=== PATIENT | female | born 1980 | race Caucasian/White ===

== ENCOUNTER 2016-06-22 14:28 | Emergency (ER) | payer OTHER ==
[~2016-06-22] VITALS: Ht 177.8 cm; Wt 80.0 kg
[2016-06-22 14:29] VITALS: BP 137/101; PULSE 103; RESP 24; TEMP 97.9; O2SAT 93
[2016-06-22] MEDS ORDERED: SODIUM CHLOR 0.9% 1000 ML INJ 1,000 ML IV SCH (15:01)
--- NOTE | 2016-06-22 15:02 | PD ---
HPI Chief Complaint: Abdominal Pain Time Seen by Provider: 15:02 Travel History International Travel<30 days: No Contact w/Intl Traveler<30days: No Traveled to known affect area: No History of Present Illness HPI 35-year-old female presents to the emergency department for evaluation of epigastric burning pain and nausea. The patient states that she has had intermittent epigastric abdominal pain for the past 2 months and has been following up with her outpatient physician. States that she had lab work which showed she had an elevated lipase, had an abdominal ultrasound which showed she had a dilated common bile duct and an endoscopy that showed she had irritation and inflammation of the stomach lining without evidence of ulcers. States that she is here today because the abdominal pain has been much worse for the past 3 hours that has over the past 2 months. States she has been taking ibuprofen and Tylenol to try to help with her pain, admits taking ibuprofen daily. States that she does have intermittent nausea and nonbloody nonbilious emesis, had 1-2 episodes of vomiting today. States she is also having diarrhea, denies constipation or bloody stool. Denies fever, chills, chest pain, shortness of breath, cough or cold symptoms, burning with urination, painful urination. Denies , last visit. One week ago. The patient admits to drinking at least one alcoholic beverage 5-6 days out of the week, admits that she drank heavily last night approximately 6 shots and 3 alcoholic beverages. Denies any prior abdominal surgeries. No other complaints. PFSH Past Medical History Medical History: Denies Significant Hx Tetanus Vaccination: < 5 Years ?: Not Past Surgical History Surgical History: No Previous Surgery Social History Alcohol Use: Yes Tobacco Use: Yes Substance Use: No Allergies-Medications (Allergen,Severity, Reaction): Coded Allergies: No Known Allergies (Unverified , 06/22/16) Reported Meds & Prescriptions Reported Meds & Active Scripts Active No Active Prescriptions or Reported Medications Review of Systems Except as stated in HPI: all other systems reviewed are Neg Physical Exam Narrative GENERAL: Well-nourished and well-developed pleasant patient in no acute distress who is nontoxic appearing. SKIN: Warm and dry without any obvious rashes or lesions. HEAD: Normocephalic and atraumatic. EYES: No injection, drainage, or hyphema noted. PERRLA. EOMI. ENT: No nasal drainage noted. Oropharynx is clear and the TMs are normal with good landmarks. NECK: Supple and the trachea is midline. CARDIOVASCULAR: Regular rate and rhythm. RESPIRATORY: Breath sounds are equal bilaterally with no accessory muscle use, wheezing, rhonchi, or crackles. GASTROINTESTINAL: Epigastric tenderness to palpation. Abdomen is soft and nondistended. Negative McBurney's point. Negative Cruz's sign. MUSCULOSKELETAL: No obvious deformities, swelling, cyanosis, or ecchymosis is present throughout the upper and lower extremities. Patient has full range of motion without any signs of neurovascular compromise. BACK: Negative CVA tenderness. NEUROLOGICAL: Awake, alert, and oriented. Normal speech and gait. Cranial nerves are grossly intact. Data Data Last Documented VS Vital Signs Date Time Temp Pulse Resp B/P Pulse Ox O2 Delivery O2 Flow Rate FiO2 06/22/16 15:12 99 06/22/16 14:29 97.9 103 24 137/101 Room Air Orders Complete Blood Count With Diff (06/22/16 15:01) Comprehensive Metabolic Panel (06/22/16 15:01) Lipase (06/22/16 15:01) Urinalysis - C+S If Indicated (06/22/16 15:01) Iv Access Insert/Monitor (06/22/16 15:01) Ecg Monitoring (06/22/16 15:01) Oximetry (06/22/16 15:01) Morphine Inj (Morphine Inj) (06/22/16 15:15) Ondansetron Inj (Zofran Inj) (06/22/16 15:15) Sodium Chlor 0.9% 1000 Ml Inj (Ns 1000 M (06/22/16 15:01) Sodium Chloride 0.9% Flush (Ns Flush) (06/22/16 15:15) Famotidine Inj (Pepcid Inj) (06/22/16 15:15) Ed Urine Pregnancytest Poc (06/22/16 15:01) Diphenhydramine Inj (Benadryl Inj) (06/22/16 15:30) Acetaminophen (Tylenol) (06/22/16 16:00) Al-Mag Hy-Si 40-40-4 Mg/Ml Liq (Mag-Al P (06/22/16 16:30) Lidocaine 2% Viscous (Xylocaine 2% Visco (06/22/16 16:30) Labs Laboratory Tests Test 06/22/16 15:00 White Blood Count 8.7 TH/MM3 Red Blood Count 4.66 MIL/MM3 Hemoglobin 14.3 GM/DL Hematocrit 41.5 % Mean Corpuscular Volume 88.9 FL Mean Corpuscular Hemoglobin 30.6 PG Mean Corpuscular Hemoglobin 34.4 % Concent Red Cell Distribution Width 14.7 % Platelet Count 321 TH/MM3 Mean Platelet Volume 7.7 FL Neutrophils (%) (Auto) 64.9 % Lymphocytes (%) (Auto) 23.3 % Monocytes (%) (Auto) 8.5 % Eosinophils (%) (Auto) 2.3 % Basophils (%) (Auto) 1.0 % Neutrophils # (Auto) 5.6 TH/MM3 Lymphocytes # (Auto) 2.0 TH/MM3 Monocytes # (Auto) 0.7 TH/MM3 Eosinophils # (Auto) 0.2 TH/MM3 Basophils # (Auto) 0.1 TH/MM3 CBC Comment DIFF FINAL Differential Comment Urine Color YELLOW Urine Turbidity CLEAR Urine pH 8.0 Urine Specific Orchard 1.018 Urine Protein TRACE mg/dL Urine Glucose (UA) NEG mg/dL Urine Ketones NEG mg/dL Urine Occult Blood NEG Urine Nitrite NEG Urine Bilirubin NEG Urine Urobilinogen LESS THAN 2.0 MG/DL Urine Leukocyte Esterase NEG Urine RBC 1 /hpf Urine WBC 1 /hpf Urine Squamous Epithelial 6 /hpf Cells Urine Mucus FEW /lpf Microscopic Urinalysis Comment CULT NOT INDICATED Sodium Level 141 MEQ/L Potassium Level 4.1 MEQ/L Chloride Level 108 MEQ/L Carbon Dioxide Level 26.0 MEQ/L Anion Gap 7 MEQ/L Blood Urea Nitrogen 9 MG/DL Creatinine 0.79 MG/DL Estimat Glomerular Filtration 82 ML/MIN Rate Random Glucose 99 MG/DL Calcium Level 8.9 MG/DL Total Bilirubin 0.5 MG/DL Aspartate Amino Transf 25 U/L (AST/SGOT) Alanine Aminotransferase 32 U/L (ALT/SGPT) Alkaline Phosphatase 58 U/L Total Protein 8.0 GM/DL Albumin 4.1 GM/DL Lipase 172 U/L [facility] Medical Decision Making Medical Screen Exam Complete: Yes Emergency Medical Condition: Yes Differential Diagnosis Gastritis versus alcoholic gastritis versus pancreatitis versus colitis versus kidney stones Narrative Course 35-year-old female presents to the emergency department for evaluation of epigastric abdominal burning. Patient is afebrile, vital signs are stable. She has some mild epigastric abdominal pain but abdominal examination is essentially benign. IV access is obtained, labs were drawn and sent. Patient is given morphine 4 mg IV, Zofran 4 mg IV, Pepcid 20 mg IV and fluids. She has had this intermittent pain for 2 months and been seen by a electronic warfare linguist with an endoscopy showing gastritis. She had an abdominal ultrasound showing dilated common bile duct. She has an appointment for outpatient MRI of the abdomen on Thursday to evaluate her gallbladder and pancreas. CBC is unremarkable. CMP is unremarkable. Lipase is normal. Urinalysis is unremarkable. ED urine test is negative. Labs are all reassuring. Patient has gastritis and drank an excessive amount of alcohol last night aggravating her gastritis. Patient is administered a GI cocktail. Discussed supportive care and advised follow-up with her PCP or electronic warfare linguist. Diagnosis Primary Impression: Gastritis Qualified Code: K29.20 - Acute alcoholic gastritis without hemorrhage Referrals: Traffic Police Officer Primary Care Physician Patient Instructions: Gastritis (ED), General Instructions Additional Instructions: Decrease NSAIDS and alcohol use. Continue omeprazole as prescribed by your physician. Take medication as prescribed. Follow-up with your Primary Care Physician or electronic warfare linguist. Return to the ED for any acute worsening of symptoms. Med/Other Pt SpecificInfo: Prescription(s) given Scripts Bbefuvcu-Pbsiaacrq-Gyyklcaxdlw Liq (Maalox Advanced Maximum Strength Liq)400-400 -40 Mg/5 Ml Susp10 Ml PO QID 7 Days Ref 0 Take between meals or as directed. Shake well. Maximum 60 ml/24 hrs. Prov:Grabiel Worrell MD 06/22/16 Disposition: 01 DISCHARGE HOME Condition: Stable Migdalia Sidhu Jun 22, 2016 15:02
[2016-06-22 15:12] VITALS: O2SAT 99
[2016-06-22] MEDS ORDERED: MORPHINE SULFATE 4 MG/ML INJ IV PUSH ONE (15:15)
[2016-06-22] MEDS ORDERED: FAMOTIDINE 20 MG/2 ML VIAL IV PUSH ONE (15:15)
[2016-06-22] MEDS ORDERED: SODIUM CHLORIDE 0.9% FLUSH 5 ML FLUSH IVF PRN (15:15)
[2016-06-22] MEDS ORDERED: ONDANSETRON HCL 4 MG/2 ML VIAL IVP ONE (15:15)
[2016-06-22] MEDS ORDERED: diphenhydrAMINE HCL 50 MG/ML VIAL IV PUSH ONE (15:30)
[2016-06-22 15:53] LABS: AUTOMATED NEUTROPHIL # 5.6 TH/MM3 (1.8-7.7); BASOPHIL # 0.1 TH/MM3 (0-0.2); EOSINOPHIL # 0.2 TH/MM3 (0-0.4); EOSINOPHIL % 2.3 % (0.0-4.0); HEMATOCRIT 41.5 % (35.0-46.0); HEMO FLAGS DIFF FINAL; LYMPH % 23.3 % (9.0-44.0); MEAN CELL VOLUME 88.9 FL (80.0-100.0); MEAN CORPUSCULAR HEMOGLOBIN 30.6 PG (27.0-34.0); MEAN CORPUSCULAR HGB CONC 34.4 % (32.0-36.0); MONO % 8.5 % (0.0-8.0); NEUT % 64.9 % (16.0-70.0); PLATELET COUNT 321 TH/MM3 (150-450); RED BLOOD COUNT 4.66 MIL/MM3 (4.00-5.30); RED CELL DISTRIBUTION WIDTH 14.7 % (11.6-17.2); WHITE BLOOD COUNT 8.7 TH/MM3 (4.0-11.0)
[2016-06-22 15:58] LABS: BLOOD, URINE NEG (NEG); COMMENT (UR) CULT NOT INDICATED; CULTURE IF INDICATED CULT NOT INDICATED; GLUCOSE,URINE NEG (NEG); KETONE, URINE NEG (NEG); MUCUS URINE FEW /lpf (OCC); NITRITE,URINE NEG (NEG); SQUAMOUS EPITHELIAL CELL URINE 6 /hpf (0-5); URINE COLOR YELLOW (YELLW/STRAW)
[2016-06-22] MEDS ORDERED: ACETAMINOPHEN 500 MG CPLT PO ONE (16:00)
[2016-06-22 16:13] LABS: ANION GAP 7 MEQ/L (5-15); AST (GOT) 25 U/L (15-37); BLOOD UREA NITROGEN 9 MG/DL (7-18); CHLORIDE 108 MEQ/L (98-107); GLOMERULAR FILTRATION RATE 82 ML/MIN (>89); SODIUM (NA) 141 MEQ/L (136-145)
[2016-06-22 16:15] LABS: ALKALINE PHOSPHATASE 58 U/L (45-117); ALT (GPT) 32 U/L (10-53); TOTAL BILIRUBIN ADULT 0.5 MG/DL (0.2-1.0)
[2016-06-22 16:16] LABS: POTASSIUM 4.1 MEQ/L (3.5-5.1)
[2016-06-22] MEDS ORDERED: LIDOCAINE VISCOUS 2% SOLN 15 ML UDC PO ONE (16:30)
[2016-06-22] MEDS ORDERED: ALUMINUM/MAGNESIUM/SIMETH 30 ML CUP PO ONE (16:30)
[2016-06-22] MEDS ORDERED: MAALSUS18 PO (16:41)
[2016-06-22] MEDS ORDERED: TRAM50TA PO (17:16)
== END 2016-06-22 18:00 | disposition home or self-care (01) ==
LOC: NEPE 14:28
DX: K29.70 Gastritis, unspecified, without bleeding (principal); Z72.0 Tobacco use; K83.8 Other specified diseases of biliary tract; R19.7 Diarrhea, unspecified
CPT/HCPCS: 80053; 81001; 83690; 84703; 85025; 96374; 96375; 99284; J1200; J2270; J2405; J7030

== ENCOUNTER 2017-03-07 19:10 | Emergency (ER) | payer SELFPAY ==
[~2017-03-07] VITALS: Ht 83.8 cm; Wt 78.7 kg
[~2017-03-07 19:10] MED LIST: MAALSUS18 PO; TRAM50TA PO
[2017-03-07 19:52] VITALS: BP 135/84; PULSE 109; RESP 18; TEMP 98.9; O2SAT 97
--- NOTE | 2017-03-07 22:14 | PD ---
HPI Chief Complaint: Edema Time Seen by Provider: 22:07 Travel History International Travel<30 days: No Contact w/Intl Traveler<30days: No Traveled to known affect area: No History of Present Illness HPI The patient is a 36-year-old female that complains of left leg redness and swelling for 6 days. She was started on monocycline and doxycycline a week and a half ago and Keflex and clindamycin were added 5 days ago by her primary care physician, Dr. Costello. The antibiotics are Keflex, minocycline, doxycycline and clindamycin. She states she is taking these medications correctly and she states she is elevating her leg the best she can. She states it is getting worse and the last time she had this she had to be admitted for IV antibiotics. She states she had a fever this morning of 100.7. She says she took Motrin right before coming in. She states her primary care physician sent her in for an ultrasound to rule out DVT 2 days ago for a clot and there was no clot. She states there is no possibility of . She states she has been vaginally bleeding for 4 months and they want to do a hysterectomy. PFSH Past Medical History LMP: ON IT FOR 4 MTHS Social History Alcohol Use: Yes Tobacco Use: Yes Substance Use: No Allergies-Medications (Allergen,Severity, Reaction): Coded Allergies: Sulfa (Sulfonamide Antibiotics) (Verified Allergy, Unknown, Anaphylaxis, 03/07/17) aspirin (Verified Allergy, Unknown, Wheezing, 03/07/17) morphine (Verified Allergy, Unknown, Anaphylaxis, 03/07/17) Reported Meds & Prescriptions Reported Meds & Active Scripts Active Reported Protonix (Pantoprazole Sodium) 40 Mg Tab 40 Mg PO DAILY Ibuprofen 800 Mg Tab 800 Mg PO Q6HR PRN Keflex (Cephalexin) 250 Mg Cap 250 Mg PO Q6H Doxycycline Hyclate DR (Doxycycline Hyclate) 100 Mg Tab 100 Mg PO BID Clindamycin (Clindamycin HCl) 300 Mg Cap 300 Mg PO Q6H Review of Systems Except as stated in HPI: all other systems reviewed are Neg Physical Exam Narrative GENERAL: The patient is alert, oriented 3 and moderate apparent distress with her left leg pain. Her vital signs show heart rate of 109 but are otherwise normal. SKIN: Focused skin assessment warm/dry. HEAD: Atraumatic. Normocephalic. EYES: Pupils equal and round. No scleral icterus. No injection or drainage. ENT: No nasal bleeding or discharge. Mucous membranes pink and moist. NECK: Trachea midline. No JVD. CARDIOVASCULAR: Regular rate and rhythm. No murmur appreciated. RESPIRATORY: No accessory muscle use. Clear to auscultation. Breath sounds equal bilaterally. GASTROINTESTINAL: Abdomen soft, non-tender, nondistended. Hepatic and splenic margins not palpable. MUSCULOSKELETAL: No obvious deformities. No clubbing. No cyanosis. There is + 2 pitting edema on the left leg. There is some redness around the midportion of the lower leg. NEUROLOGICAL: Awake and alert. No obvious cranial nerve deficits. Motor grossly within normal limits. Normal speech. PSYCHIATRIC: Appropriate mood and affect; insight and judgment normal. Data Data Last Documented VS Vital Signs Date Time Temp Pulse Resp B/P (MAP) Pulse Ox O2 Delivery O2 Flow Rate FiO2 03/07/17 22:20 77 16 117/77 (90) 100 Room Air 03/07/17 19:52 98.9 Orders Orders Complete Blood Count With Diff (03/07/17 22:16) Comprehensive Metabolic Panel (03/07/17 22:16) Urinalysis - C+S If Indicated (03/07/17 22:16) Beta Hcg (Quant/Titer) (03/07/17 22:16) Labs Laboratory Tests Test 03/07/17 22:40 White Blood Count 10.5 TH/MM3 Red Blood Count 4.42 MIL/MM3 Hemoglobin 13.4 GM/DL Hematocrit 39.2 % Mean Corpuscular Volume 88.8 FL Mean Corpuscular Hemoglobin 30.3 PG Mean Corpuscular Hemoglobin Concent 34.2 % Red Cell Distribution Width 13.2 % Platelet Count 424 TH/MM3 Mean Platelet Volume 7.1 FL Neutrophils (%) (Auto) 67.9 % Lymphocytes (%) (Auto) 24.8 % Monocytes (%) (Auto) 4.0 % Eosinophils (%) (Auto) 2.9 % Basophils (%) (Auto) 0.4 % Neutrophils # (Auto) 7.2 TH/MM3 Lymphocytes # (Auto) 2.6 TH/MM3 Monocytes # (Auto) 0.4 TH/MM3 Eosinophils # (Auto) 0.3 TH/MM3 Basophils # (Auto) 0.0 TH/MM3 CBC Comment DIFF FINAL Differential Comment Blood Urea Nitrogen 9 MG/DL Creatinine 0.75 MG/DL Random Glucose 95 MG/DL Total Protein 7.5 GM/DL Albumin 3.3 GM/DL Calcium Level 8.1 MG/DL Alkaline Phosphatase 93 U/L Aspartate Amino Transf (AST/SGOT) 24 U/L Alanine Aminotransferase (ALT/SGPT) 37 U/L Total Bilirubin 0.2 MG/DL Sodium Level 137 MEQ/L Potassium Level 4.0 MEQ/L Chloride Level 104 MEQ/L Carbon Dioxide Level 27.7 MEQ/L Anion Gap 5 MEQ/L Estimat Glomerular Filtration Rate 87 ML/MIN Human Chorionic Gonadotropin, Quant LESS THAN 1 MIU/ML MDM Medical Decision Making Medical Screen Exam Complete: Yes Emergency Medical Condition: Yes Medical Record Reviewed: Yes Interpretation(s) The CBC is normal and the complete metabolic profile shows a GFR of 87, calcium 8.1 and albumen 3.3 but is otherwise normal. The beta-hCG is less than 1, she is not . Differential Diagnosis Cellulitis, DVT, allergic reaction Narrative Course The patient has a cellulitis. I spoke with Dr. Costello and he says that she does not follow-up with his office as scheduled and instructed me to give her an IV antibiotic and follow-up Thursday in Dr. Costello's office. He specifically suggested I do not give her any narcotics for pain. Physician Communication Physician Communication I discussed the patient with Dr. Costello Diagnosis Primary Impression: Cellulitis of left lower extremity Additional Instructions: Dr. Costello told me to tell you to follow-up Thursday in his office. Elevate your leg above your heart is best you can. Take the oral antibiotics as scheduled. Med/Other Pt SpecificInfo: No Change to Meds Disposition: 01 DISCHARGE HOME Condition: Stable Andrew Beltran MD Mar 07, 2017 22:14
[2017-03-07] MEDS ORDERED: IBUP800T23 PO (22:19)
[2017-03-07] MEDS ORDERED: DOXY1TAB6 PO (22:19)
[2017-03-07] MEDS ORDERED: CEPH-459 PO (22:19)
[2017-03-07] MEDS ORDERED: CLIN1CAP6 PO (22:19)
[2017-03-07 22:20] VITALS: BP 117/77; PULSE 77; RESP 16; O2SAT 100
[2017-03-07 22:57] LABS: AUTOMATED NEUTROPHIL # 7.2 TH/MM3 (1.8-7.7); BASOPHIL % 0.4 % (0.0-2.0); EOSINOPHIL # 0.3 TH/MM3 (0-0.4); EOSINOPHIL % 2.9 % (0.0-4.0); HEMATOCRIT 39.2 % (35.0-46.0); LYMPH % 24.8 % (9.0-44.0); LYMPHOCYTE # 2.6 TH/MM3 (1.0-4.8); MEAN CELL VOLUME 88.8 FL (80.0-100.0); MEAN CORPUSCULAR HEMOGLOBIN 30.3 PG (27.0-34.0); MEAN CORPUSCULAR HGB CONC 34.2 % (32.0-36.0); NEUT % 67.9 % (16.0-70.0); PLATELET COUNT 424 TH/MM3 (150-450); RED BLOOD COUNT 4.42 MIL/MM3 (4.00-5.30); RED CELL DISTRIBUTION WIDTH 13.2 % (11.6-17.2); WHITE BLOOD COUNT 10.5 TH/MM3 (4.0-11.0)
[2017-03-07 23:02] LABS: HEMO FLAGS DIFF FINAL
[2017-03-07] MEDS ORDERED: PROT40TA PO (23:02)
[2017-03-07 23:07] LABS: CHLORIDE 104 MEQ/L (98-107); SODIUM (NA) 137 MEQ/L (136-145)
[2017-03-07 23:11] LABS: ANION GAP 5 MEQ/L (5-15); BICARBONATE 27.7 MEQ/L (21.0-32.0); BLOOD UREA NITROGEN 9 MG/DL (7-18)
[2017-03-07 23:14] LABS: ALT (GPT) 37 U/L (10-53); AST (GOT) 24 U/L (15-37); GLOMERULAR FILTRATION RATE 87 ML/MIN (>89)
[2017-03-07 23:15] LABS: TOTAL BILIRUBIN ADULT 0.2 MG/DL (0.2-1.0)
[2017-03-07 23:17] LABS: ALKALINE PHOSPHATASE 93 U/L (45-117)
[2017-03-07 23:19] LABS: BETA HCG QUANT LESS THAN 1 MIU/ML (0-5)
[2017-03-08] MEDS ORDERED: VANCOMYCIN INJ 1,250 MG in SODIUM CHLOR 0.9% 250 ML INJ 250 ML IV ONE (00:15)
[2017-03-08 01:00] VITALS: BP 119/78; PULSE 93; RESP 20; O2SAT 99
[2017-03-08] MEDS ORDERED: diphenhydrAMINE HCL 50 MG/ML VIAL IV PUSH ONE (01:00)
[2017-03-08 01:38] VITALS: BP 118/78
== END 2017-03-08 01:41 | disposition home or self-care (01) ==
LOC: PHED 19:10
DX: L03.116 Cellulitis of left lower limb (principal); Z72.0 Tobacco use
CPT/HCPCS: 80053; 84702; 85025; 96374; 96375; 99284; J1200; J3370; J7050

== ENCOUNTER → 2017-04-15 | Outpatient (CLI) | payer OTHER ==
[~2017-04-15] MED LIST changes: +CALC12502 PO; +CEPH-459 PO; +CLIN300C5 PO; +D3400CAP PO; +DILA2TAB4 PO; +DOXY1TAB6 PO; +IBUP1TAB7 PO; +KETO10 PO; -MAALSUS18 PO; +OXYC-395 PO; +PROT40TA PO; +Simethicone Chew CHEW; -TRAM50TA PO; +VITA10002 PO; +oxyCODONE SR PO
[2017-04-15 11:23] LABS: AUTOMATED NEUTROPHIL # 6.1 TH/MM3 (1.8-7.7); BASOPHIL # 0.1 TH/MM3 (0-0.2); BASOPHIL % 0.7 % (0.0-2.0); EOSINOPHIL # 0.3 TH/MM3 (0-0.4); EOSINOPHIL % 3.6 % (0.0-4.0); HEMATOCRIT 37.4 % (35.0-46.0); HEMO FLAGS DIFF FINAL; LYMPH % 18.9 % (9.0-44.0); LYMPHOCYTE # 1.6 TH/MM3 (1.0-4.8); MEAN CELL VOLUME 90.3 FL (80.0-100.0); MEAN CORPUSCULAR HEMOGLOBIN 30.7 PG (27.0-34.0); MONO % 6.8 % (0.0-8.0); PLATELET COUNT 336 TH/MM3 (150-450); RED BLOOD COUNT 4.15 MIL/MM3 (4.00-5.30); RED CELL DISTRIBUTION WIDTH 13.7 % (11.6-17.2); WHITE BLOOD COUNT 8.7 TH/MM3 (4.0-11.0)
[2017-04-15 11:38] LABS: BACTERIA, URINE RARE /hpf; BLOOD, URINE SMALL (NEG); GLUCOSE,URINE NEG (NEG); KETONE, URINE NEG (NEG); NITRITE,URINE NEG (NEG); SQUAMOUS EPITHELIAL CELL URINE 3 /hpf (0-5); URINE COLOR YELLOW (YELLW/STRAW)
[2017-04-15 11:42] LABS: ALT (GPT) 24 U/L (10-53); ANION GAP 6 MEQ/L (5-15); AST (GOT) 15 U/L (15-37); BICARBONATE 25.4 MEQ/L (21.0-32.0); BLOOD UREA NITROGEN 6 MG/DL (7-18); CHLORIDE 107 MEQ/L (98-107); GLOMERULAR FILTRATION RATE 103 ML/MIN (>89); GLUCOSE,FASTING 96 MG/DL (74-99); POTASSIUM 4.2 MEQ/L (3.5-5.1); SODIUM (NA) 138 MEQ/L (136-145)
[2017-04-15 11:46] LABS: ALKALINE PHOSPHATASE 60 U/L (45-117); TOTAL BILIRUBIN ADULT 0.3 MG/DL (0.2-1.0)
[2017-04-15 11:48] LABS: BHCG SCREEN QUALITATIVE LESS THAN 1 MIU/ML (0-5)
== END ==
LOC: CPRE 10:33
PROVIDERS: ATTEND Obstetrics & Gynecology
DX: Z01.812 Encounter for preprocedural laboratory examination (principal); N92.0 Excessive and frequent menstruation with regular cycle
CPT/HCPCS: 36415; 80053; 81001; 84703; 85025

== ENCOUNTER 2017-04-20 05:50 | Inpatient (IN) | payer OTHER ==
[~2017-04-20] VITALS: Ht 175.3 cm; Wt 81.4 kg
[~2017-04-20 05:50] MED LIST changes: -CEPH-459 PO; -CLIN300C5 PO; -DILA2TAB4 PO; -DOXY1TAB6 PO; -KETO10 PO; -PROT40TA PO; -Simethicone Chew CHEW; -oxyCODONE SR PO
[2017-04-20] MEDS ORDERED: INSULIN HUMAN REGULAR 1,000 UNITS/10 ML VIAL SQ PRN (06:30)
[2017-04-20] MEDS ORDERED: SODIUM CHLORID 0.9% 500 ML IV PRN (06:30)
[2017-04-20] MEDS ORDERED: METOPROLOL TARTRATE 25 MG TAB PO PRN (06:30)
[2017-04-20] MEDS ORDERED: POVIDONE IODINE 5% (ANTISEPSIS KIT) 4 APPLICATIONS EACH NARE PRN (06:30)
[2017-04-20] MEDS ORDERED: CHLORHEXIDINE GLUCONATE 2 % 1 PACK (2 CLOTHS) TOPICAL PRN (06:30)
[2017-04-20] MEDS ORDERED: LACTATED RINGER'S 1000 ML IV PRN (06:30)
[2017-04-20] MEDS ORDERED: BUPIVACAINE/EPINEPHRINE 0.25% PF 30 ML VIAL ONE (07:30)
[2017-04-20] MEDS ORDERED: ACETAMINOPHEN 1000 MG/100 ML 100 ML IV ONE (09:39)
[2017-04-20] MEDS ORDERED: HYDROmorphone HCL PF 2 MG/ML VIAL ONE (09:40)
[2017-04-20] MEDS: ceFAZolin 1,000 MG/NS 100 ML IV SCH ×4 (09:45→12:16)
[2017-04-20] MEDS ORDERED: KETAMINE HCL 500 MG/10 ML VIAL ONE (09:48)
[2017-04-20] MEDS ORDERED: LIDOCAINE 1%/EPINEPHrine 1:100,000 SOLN 20 ML VIAL ONE (10:16)
[2017-04-20] MEDS ORDERED: ROCURONIUM INJ 50 MG/5 ML SYRINGE IV PUSH ONE (12:00)
[2017-04-20] MEDS ORDERED: ONDANSETRON HCL 4 MG/2 ML VIAL IV ONE (12:00)
[2017-04-20] MEDS ORDERED: DEXAMETHASONE SOD PHOS 4 MG/ML VIAL IV ONE (12:00)
[2017-04-20] MEDS ORDERED: MIDAZOLAM HCL 2 MG/2 ML VIAL IV ONE (12:00)
[2017-04-20] MEDS ORDERED: LIDOCAINE HCL 1% PF 5 ML SYRINGE OTHER ONE (12:00)
[2017-04-20] MEDS ORDERED: GLYCOPYRROLATE 1 MG/5 ML SYRINGE IV PUSH ONE (12:00)
[2017-04-20] MEDS ORDERED: ceFAZolin INJ 1,000 MG VIAL IV ONE ×2 (12:00→13:50)
[2017-04-20] MEDS ORDERED: PROPOFOL 200 MG/20 ML AMP IV ONE (12:00)
[2017-04-20] MEDS ORDERED: NEOSTIGMINE 3 MG/3 ML SYR IV ONE (12:00)
[2017-04-20] MEDS ORDERED: LACTATED RINGER'S 1000 ML INJ 3,000 ML IV ONE (12:00)
[2017-04-20] MEDS ORDERED: NALOXONE HCL 0.4 MG/ML AMP IV PUSH PRN (14:15)
[2017-04-20] MEDS ORDERED: ACETAMINOPHEN 1000 MG/100 ML 100 ML IV SCH (14:15)
[2017-04-20] MEDS ORDERED: oxyCODONE/ACETAMINOPHEN 10 MG/325 MG TAB PO PRN (14:15)
[2017-04-20] MEDS ORDERED: diphenhydrAMINE HCL 50 MG/ML VIAL IV PUSH PRN (14:15)
[2017-04-20] MEDS ORDERED: ACETAMINOPHEN/HYDROcodone 325 MG/5 MG TAB PO PRN (14:15)
[2017-04-20] MEDS ORDERED: ONDANSETRON ODT 4 MG TAB SL PRN (14:15)
[2017-04-20] MEDS ORDERED: ONDANSETRON HCL 4 MG/2 ML VIAL IV PUSH PRN (14:15)
[2017-04-20] MEDS ORDERED: PROMETHAZINE INJ 25 MG/ML VIAL IM PRN (14:15)
--- NOTE | 2017-04-20 14:18 | HHI.PR ---
Immediate Post Op Note Procedure Date: Apr 20, 2017 Pre Op Diagnosis: (1) Adenomyosis (2) Menorrhagia (3) Dysmenorrhea Post Op Diagnosis: (1) Endometriosis (2) Adenomyosis (3) Menorrhagia (4) Dysmenorrhea Surgeon: Wendy Zaldivar Custom Frame Assembler(s): Armaan Sullivan Procedure: Laparoscopy converted to [place] abdominal hysterectomy with bilateral salpingectomy Findings: Large globular uterus c/w adenomyosis, endometrial implants near round ligament insertion bilaterally, endosalpingiosis. Left ovary with 3cm cyst, left paratubal cyst. Right ovary normal in appearance. Complications: conversion to open procedure to obtain hemostasis Specimen(s) removed: uterus, cervix, bilateral fallopian tubes Estimated blood loss: 500ml Anesthesia: General Drains: None Fluids: 3500ml IVF Urinary Output (mLs): 250 Patient to: PACU Patient Condition: Good Wendy Zaldivar MD Apr 20, 2017 14:18
[2017-04-20] MEDS ORDERED: DO NOT ADM ANY ANTICOAGULANT DRUGS PRN (14:19)
[2017-04-20] MEDS ORDERED: *MEPERIDINE 25 MG INJ VIAL PERIprocedural Use ONLY ONE (14:20)
[2017-04-20] MEDS ORDERED: *HYDROmorphone PF 1 MG VIAL PERIprocedural Use ONLY ONE (14:20)
[2017-04-20] MEDS: DOCUSATE SODIUM 100 MG CAP PO SCH ×2 (15:00→20:39)
[2017-04-20 15:20] VITALS: BP 144/94; PULSE 62; RESP 17; TEMP 97.5; O2SAT 99
[2017-04-20] MEDS: ZOLPIDEM TARTRATE 5 MG TAB PO PRN (17:14)
[2017-04-20] MEDS: HYDROmorphone HCL PCA 6 MG/30 ML IV SCH ×2 (17:14→21:12)
[2017-04-20] MEDS: PCA - TOTAL MG DILAUDID DELIVERED PER SHIFT OTHER SCH (17:16)
[2017-04-20] MEDS: KETOROLAC TROMETHAMINE 30 MG/ML (IVP) VIAL IV PUSH SCH (18:20)
[2017-04-20] MEDS: SODIUM CHLORIDE 0.9% FLUSH 10 ML FLUSH IV FLUSH SCH ×2 (20:10→20:48)
[2017-04-20] MEDS: REMOVE OLD PATCH T-DERMAL SCH (20:48)
[2017-04-20 20:50] VITALS: BP 116/74; PULSE 60; RESP 20; TEMP 98.3; O2SAT 98
[2017-04-20] MEDS: LACTATED RINGER'S 1000 ML INJ 1,000 ML IV SCH (21:11)
[2017-04-21 00:25] VITALS: BP 109/74; PULSE 76; RESP 18; TEMP 98.3; O2SAT 98
[2017-04-21] MEDS: KETOROLAC TROMETHAMINE 30 MG/ML (IVP) VIAL IV PUSH SCH ×3 (00:28→12:10)
[2017-04-21] MEDS: ZOLPIDEM TARTRATE 5 MG TAB PO PRN (00:29)
[2017-04-21] MEDS: HYDROmorphone HCL PCA 6 MG/30 ML IV SCH ×4 (00:29→11:00)
[2017-04-21] MEDS: SODIUM CHLORIDE 0.9% FLUSH 10 ML FLUSH IV FLUSH PRN ×2 (00:29→06:18)
[2017-04-21 04:25] VITALS: BP 110/67; PULSE 70; RESP 18; TEMP 98.8; O2SAT 98
[2017-04-21] MEDS: LACTATED RINGER'S 1000 ML INJ 1,000 ML IV SCH ×3 (04:41→22:03)
[2017-04-21 05:56] LABS: AUTOMATED NEUTROPHIL # 6.5 TH/MM3 (1.8-7.7); BASOPHIL # 0.1 TH/MM3 (0-0.2); BASOPHIL % 0.7 % (0.0-2.0); EOSINOPHIL # 0.1 TH/MM3 (0-0.4); EOSINOPHIL % 0.8 % (0.0-4.0); HEMATOCRIT 30.1 % (35.0-46.0); HEMO FLAGS DIFF FINAL; LYMPH % 22.4 % (9.0-44.0); LYMPHOCYTE # 2.2 TH/MM3 (1.0-4.8); MEAN CELL VOLUME 91.4 FL (80.0-100.0); MEAN CORPUSCULAR HGB CONC 32.8 % (32.0-36.0); MONO % 9.1 % (0.0-8.0); PLATELET COUNT 254 TH/MM3 (150-450); RED CELL DISTRIBUTION WIDTH 13.9 % (11.6-17.2); WHITE BLOOD COUNT 9.7 TH/MM3 (4.0-11.0)
[2017-04-21] MEDS: PCA - TOTAL MG DILAUDID DELIVERED PER SHIFT OTHER SCH ×2 (06:18→14:00)
[2017-04-21] MEDS: NICOTINE 21 MG/24 HR PATCH T-DERMAL SCH (08:10)
[2017-04-21] MEDS: SODIUM CHLORIDE 0.9% FLUSH 10 ML FLUSH IV FLUSH SCH ×2 (08:10→20:37)
[2017-04-21] MEDS: DOCUSATE SODIUM 100 MG CAP PO SCH (08:14)
[2017-04-21 08:15] VITALS: BP 114/65; PULSE 91; RESP 18; TEMP 98.2; O2SAT 96
--- NOTE | 2017-04-21 08:37 | HHI.PR ---
Subjective Remarks Doing well, pain moderately controlled since she ran out of dilaudid. She has usual lower back pain. Able to void. eating well. Objective Vital Signs Vital Signs Date Time Temp Pulse Resp B/P (MAP) Pulse Ox O2 Delivery O2 Flow Rate FiO2 04/21/17 08:14 18 04/21/17 06:18 20 04/21/17 04:40 18 04/21/17 04:25 98.8 70 18 110/67 (81) 98 04/21/17 00:29 20 04/21/17 00:25 98.3 76 18 109/74 (86) 98 04/20/17 21:45 18 04/20/17 21:12 20 04/20/17 20:50 98.3 60 20 116/74 (88) 98 04/20/17 17:16 17 04/20/17 17:14 17 04/20/17 15:20 97.5 62 17 144/94 (111) 99 04/20/17 15:05 71 14 137/73 (94) 96 Room Air 04/20/17 14:45 69 14 132/73 (92) 96 Room Air 04/20/17 14:30 70 14 150/80 (103) 96 Room Air 04/20/17 14:19 97.8 71 14 161/79 (106) 100 Nasal Cannula 4 I/O 04/20/17 04/20/17 04/20/17 04/21/17 04/21/17 04/21/17 07:00 15:00 23:00 07:00 15:00 23:00 Intake Total 3500 ml 1598 ml Output Total 750 ml 275 ml 1600 ml Balance 2750 ml -275 ml -2 ml Intake IV Total 1598 ml Other 3500 ml Output Urine Total 250 ml 275 ml 1600 ml Estimated Blood Loss 500 ml Result Diagram: 04/21/1751704/21/17517 Objective Remarks A&O Chest is clear, regular rate and rhythm. Abdomen is soft and non-distended. Incision dressing with min blood. Ext no CCE. A/P Assessment and Plan Post Op Day 1 Doing well, well cont to adjust pain meds. not ready for d/c. Wendy Zaldivar MD Apr 21, 2017 08:37
[2017-04-21 12:00] VITALS: BP 98/59; PULSE 82; RESP 20; TEMP 97.9; O2SAT 97
[2017-04-21] MEDS ORDERED: IBUPROFEN 600 MG TAB PO PRN (14:15)
[2017-04-21 15:30] VITALS: BP 121/72; PULSE 86; RESP 20; TEMP 98; O2SAT 100
[2017-04-21] MEDS ORDERED: SIMETHICONE 80 MG CHEWABLE TAB CHEW PRN (17:45)
[2017-04-21 20:00] VITALS: BP 132/76; PULSE 97; RESP 20; TEMP 99.5; O2SAT 97
[2017-04-21] MEDS ORDERED: ALPRAZolam 1 MG TAB PO ONE (20:00)
[2017-04-21] MEDS: IBUPROFEN 600 MG TAB PO SCH (20:08)
[2017-04-21] MEDS: HYDROmorphone HCL 2 MG TAB PO PRN (20:21)
[2017-04-21] MEDS: REMOVE OLD PATCH T-DERMAL SCH (20:38)
--- NOTE | 2017-04-21 23:24 | MP ---
cc: WENDY ZALDIVAR MD DATE OF SURGERY: 04/20/2017 PREOPERATIVE DIAGNOSIS: Dysmenorrhea, menorrhagia, adenomyosis. POSTOPERATIVE DIAGNOSIS: Dysmenorrhea, menorrhagia, adenomyosis. Endometriosis. PROCEDURE PERFORMED Laparoscopy converted to abdominal hysterectomy with bilateral salpingectomy. SURGEON Wendy Rubin MD. COMBINE INSPECTOR: [facility] staff. _[facility]. ANESTHESIA: General endotracheal anesthesia. PREOPERATIVE ANTIBIOTICS Ancef 1 gram IV, redosed at the end of the case. ESTIMATED BLOOD LOSS: 500 mL URINE OUTPUT: 150 mL IV FLUIDS 250 mL lactated Ringer's. DVT PROPHYLAXIS: SCDs bilateral extremities COMPLICATIONS Need to convert to open procedure to maintain hemostasis. INTRAOPERATIVE FINDINGS: Normal appendix, normal liver edge, gallbladder is surgically absent. Evidence of constipation. Pelvic inspection, uterus enlarged approximately 9 weeks size, globular appearance, consistent with adenomyosis. Bilateral tubes with endometrial implants. Left tube with paratubal cyst and left ovary with small fluid filled cyst. Right ovary was within normal limits. Endometrial implants on round ligaments bilaterally. Anterior peritoneum was within normal limits. Posterior cul-de-sac with some blood noticed, possible evidence of retrograde menses. COUNTS Correct. SPECIMEN Uterus, cervix, bilateral tubes. PROCEDURE IN DETAIL After review of informed consent the patient was taken to the operating room where general anesthesia was administered without complication. She was placed in modified dorsal lithotomy position in [facility]. Examination under anesthesia was performed. Cervix with normal contours, normal fornices with deepened pelvis, uterus felt enlarged approximately 10 cm in size, anteverted. No adnexal masses appreciated. A Gomez catheter was introduced. A bivalve speculum placed in the vagina. A Leattlka uterine manipulator was placed. The speculum was removed. Gloves were changed. Attention was then turned to the abdomen, lidocaine with epinephrine was injected in umbilical fold. A 5 mm skin incision was made with a scalpel, visual entry was made while tenting the abdomen. Once abdominal placement was confirmed, the abdomen was insufflated. The patient placed in Trendelenburg position. See intraoperative findings section for the survey. The procedure was started with a bilateral salpingectomy. The Harmonic 1000i was used. The fimbria was grasped and followed to the cornual region. It was desiccated and ligated with the harmonic and placed in the posterior cul-de-sac for removal at the end of the procedure. The round ligament was then transected. The anterior leaf of the broad ligament was dissected in medial caudal fashion to develop the bladder flap bilaterally. The harmonic was then used to transect the utero-ovarian ligament at this time. After desiccation and ligation with the harmonic, there was noted to be back bleeding from the uterine side. The Kleppinger was used to cauterize at multiple bites from the cornual region and the lateral aspect of the uterus was taken with the harmonic and the uterine side was cauterized with the Kleppinger to decrease back bleeding at the point where we reached the uterine artery on the left side. The harmonic device gave an error message to open, clamp and retuft. This was quickly performed. An error message said that the device had to be replaced despite clamping down with the harmonic. There was significant bleeding. Decision at this time was made to abandon laparoscopic procedure to ensure quick hemostasis as the bleeding was brisk and visualization was no longer possible. The laparoscopic trocars were removed. Gas was turned off. Scalpel was used to make a Pfannenstiel skin incision. The scalpel was used through the subcutaneous tissue across the fascia. The fascia was grasped with Kiko clamps, elevated, and the rectus muscles dissected off with the Bovie. The same was performed in the inferior aspect of the fascia. The rectus muscles were bluntly. The peritoneum was entered bluntly. The uterus was grasped with Monika clamps bilaterally and elevated out of the pelvis. Danyel clamps were placed across bilateral uterine arteries with control of the bleeding. Copious irrigation and suction was performed at this time. There was no further active bleeding given the clamps were in place. The area of concern on the left lower uterine segment was clamped medially and distally. The Griffiths scissors were used to cut between two clamps. A #0 Vicryl was used to ligate the pedicle. The medial pedicle was also secured with a 0 chromic. Good hemostasis was noted on the right side. The Monika clamp was maintained on the cornual region. The other Danyel clamp was removed. Bleeding had been controlled. A window was made in the posterior peritoneum of the broad ligament. The utero-ovarian ligament was clamped and the Monika clamp on the cornual region was advanced into this window. Pedicle was cut and doubly suture ligated with a [id number] followed by a free tie. The uterine arteries were skeletonized. Two Danyel clamps were placed across the uterine artery. Griffiths scissors were used to cut in between the two clamps. Pedicles closed, suture ligated to ensure no further back bleeding, ___ bites were taken bilaterally on the cardinal ligaments down to the level of the cervix and two curved Danyel clamps were placed across the base of the cervix and the specimen was removed with scissors. The angles of the uterosacral ligament and the cuff were taken with a fixation stitch. The remainder of the vaginal cuff was closed with [id number] 0 Vicryl. Irrigation was performed. Good hemostasis was noted. The bowel had been packed away with moist laparotomy sponges. These were removed. Suction irrigation was performed. Cyrus was placed on all pedicles. The peritoneum was closed with 2-0 chromic in a running fashion. The fascia was closed with #0 Vicryl in a running fashion. The subcutaneous tissue was irrigated and suctioned. Hemostasis was obtained with the Bovie. This layer was closed with 2-0 chromic in a running fashion. Skin was closed with 0 Monocryl in a subcuticular fashion. Steri-Strips were placed followed by a Primapore dressing. The patient was placed in dorsal supine position. Anesthesia was reversed. She was sent to PACU in stable condition. REMARKS: The complications of the surgery were immediately discussed with the patient's family after the surgery. The patient was also seen that evening and the complications were reviewed with her. Discussed she had a 500 EBL, and at the conversion of the procedure had we attempted to proceed in a laparoscopic fashion, we may have had increased blood loss and required a transfusion. The patient and her mother voiced understanding of the need to convert and were appreciative of efforts made to maintain her safety. Wendy Zaldivar MD PE/JAMAAL /6:39 PM /10:24 PM
[2017-04-22] VITALS (11 sets, daily range): BP systolic 117–135; BP diastolic 71–82; PULSE 87–109; RESP 16–25; TEMP 97.9–99.3; O2SAT 95–99
[2017-04-22] MEDS: HYDROmorphone HCL 2 MG TAB PO PRN ×3 (00:02→08:45)
[2017-04-22] MEDS: IBUPROFEN 600 MG TAB PO SCH ×3 (00:02→12:21)
[2017-04-22] MEDS: LACTATED RINGER'S 1000 ML INJ 1,000 ML IV SCH ×2 (04:52→14:03)
[2017-04-22 05:57] LABS: AUTOMATED NEUTROPHIL # 7.7 TH/MM3 (1.8-7.7); BASOPHIL % 0.4 % (0.0-2.0); EOSINOPHIL # 0.1 TH/MM3 (0-0.4); HEMATOCRIT 31.6 % (35.0-46.0); HEMO FLAGS DIFF FINAL; LYMPH % 13.4 % (9.0-44.0); LYMPHOCYTE # 1.3 TH/MM3 (1.0-4.8); MEAN CELL VOLUME 90.1 FL (80.0-100.0); MEAN CORPUSCULAR HEMOGLOBIN 30.9 PG (27.0-34.0); MEAN CORPUSCULAR HGB CONC 34.3 % (32.0-36.0); MONO % 8.2 % (0.0-8.0); PLATELET COUNT 245 TH/MM3 (150-450); RED BLOOD COUNT 3.51 MIL/MM3 (4.00-5.30); RED CELL DISTRIBUTION WIDTH 13.7 % (11.6-17.2)
[2017-04-22] MEDS ORDERED: POLYETHYLENE GLYCOL 17 GM PKG PO SCH (09:00)
[2017-04-22] MEDS: NICOTINE 21 MG/24 HR PATCH T-DERMAL SCH (09:00)
[2017-04-22] MEDS: SODIUM CHLORIDE 0.9% FLUSH 10 ML FLUSH IV FLUSH SCH (10:10)
--- NOTE | 2017-04-22 13:19 | HHI.PR ---
Subjective Remarks Pain poorly controlled. Feels like she is worse today; she is coughing more. She still has gas pain. Voiding w/o difficulty. Eating, no nausea or vomiting. Pt now states that she takes oxycodone 10mg anywhere from 1 to 6 times a day. She states when she takes just one a day she becomes miserable, has pain that is worse than original pain for whcih she is taking opiates for, and has withdraw symptoms. She still thinks that she wants to come completely off of pain medication after immediate postop period. States she has called pain med doc and she has deferred pain management to me at this time. Objective Vital Signs Vital Signs Date Time Temp Pulse Resp B/P (MAP) Pulse Ox O2 Delivery O2 Flow Rate FiO2 04/22/17 12:26 97.9 93 20 120/76 (91) 96 04/22/17 07:11 98.3 109 20 130/82 (98) 98 04/22/17 03:50 98.8 88 16 123/76 (92) 96 04/22/17 00:00 99.3 93 18 135/71 (92) 98 04/21/17 20:00 99.5 97 20 132/76 (94) 97 04/21/17 15:30 98.0 86 20 121/72 (88) 100 04/21/17 14:00 16 I/O 04/21/17 04/21/17 04/21/17 04/22/17 04/22/17 04/22/17 07:00 15:00 23:00 07:00 15:00 23:00 Intake Total 1598 ml Output Total 1600 ml 850 ml Balance -2 ml -850 ml Intake IV Total 1598 ml Output Urine Total 1600 ml 850 ml # Voids 3 Result Diagram: 04/22/17 0508 04/22/17 0508 Objective Remarks Agitated CV rrr Lungs: transmitted upper respiratory sounds, clear after coughing Abdomen is soft and non-distended. No rebound. Appropriately tender for postop d 2. Hypoactive bowel sounds incision c/d/i steristrips in place Ext no CCE. A/P Assessment and Plan Post Op Day 2 s/p REYMUNDO w bilateral salpingectomy: She has opiate dependance and pain control has been inadequate. Conversion of IV dilaudid to po would be an exorbitant dose. Will add oxycontin CR 20mg BID for basal pain control. She can continue to have dilaudid for breakthrough pain. will switch to po toradol instead of ibuprofen as she had good relief from iv toradol. Based on medication need, will hopefully be able to send home tomorrow. Discussed that it is unrealistic that she will be able to come off of opiates on own; will need to wean/detox under the care of her pain medicine physician. Will place on continuous pulse ox. cont IS. Continue miralax and gas -ex. Exam and interview performed in presence of nurse and patient's daughter. Wendy Zaldivar MD Apr 22, 2017 13:19
[2017-04-22] MEDS ORDERED: Simethicone Chew CHEW (13:35)
[2017-04-22] MEDS ORDERED: oxyCODONE SR PO (13:35)
[2017-04-22] MEDS ORDERED: KETO10 PO (13:35)
[2017-04-22] MEDS ORDERED: DILA2TAB4 PO (13:35)
[2017-04-22] MEDS ORDERED: oxyCODONE HCL 20 MG CONTROLLED RELEASE TAB PO SCH (14:00)
--- NOTE | 2017-04-22 16:32 | HHI.DS ---
Discharge Summary Admission Date Apr 20, 2017 at 14:14 Discharge Date: Apr 22, 2017 Admitting Diagnosis CBC/BMP: 04/22/17 0508 04/22/17 0508 Significant Findings Laboratory Tests Test 04/21/17 05:18 04/22/17 05:08 Red Blood Count 3.30 MIL/MM3 (4.00-5.30) 3.51 MIL/MM3 (4.00-5.30) Hemoglobin 9.9 GM/DL (11.6-15.3) 10.8 GM/DL (11.6-15.3) Hematocrit 30.1 % (35.0-46.0) 31.6 % (35.0-46.0) Monocytes (%) (Auto) 9.1 % (0.0-8.0) 8.2 % (0.0-8.0) Neutrophils (%) (Auto) 77.0 % (16.0-70.0) Pt Condition on Discharge: Good Discharge Disposition: Discharge Home Discharge Instructions DIET: Follow Instructions for: As Tolerated, No Restrictions Activities you can perform: Shower Only-No Bath, Pelvic Rest Activities to avoid: Strenuous Activity, Bathing, Driving, Sexual Activity Wendy Zaldivar MD Apr 22, 2017 16:32
[2017-04-22] MEDS ORDERED: KETOROLAC TROMETHAMINE 10 MG TAB PO SCH (18:00)
== END 2017-04-22 16:38 | disposition home or self-care (01) | DRG 742 ==
LOC: HSDC 05:50 → HSDI 14:14 → H1EA 15:26
PROVIDERS: ADMIT Obstetrics & Gynecology; ATTEND Obstetrics & Gynecology
PROC: 0UJD4ZZ Inspection of Uterus and Cervix, Percutaneous Endoscopic Approach (ICD-10-PCS; 2017-04-20)
PROC: 0UT70ZZ Resection of Bilateral Fallopian Tubes, Open Approach (ICD-10-PCS; 2017-04-20)
PROC: 0W3J4ZZ Control Bleeding in Pelvic Cavity, Percutaneous Endoscopic Approach (ICD-10-PCS; 2017-04-20)
PROC: 0W3J0ZZ Control Bleeding in Pelvic Cavity, Open Approach (ICD-10-PCS; 2017-04-20)
PROC: 0UT90ZZ Resection of Uterus, Open Approach (ICD-10-PCS; principal; 2017-04-20 10:10)
DX: N80.0 Endometriosis of uterus (principal); N99.61 Intraoperative hemorrhage and hematoma of a genitourinary system organ or structure complicating a genitourinary system procedure; G62.9 Polyneuropathy, unspecified; F11.23 Opioid dependence with withdrawal; N94.6 Dysmenorrhea, unspecified; N80.2 Endometriosis of fallopian tube; N70.91 Salpingitis, unspecified; N92.0 Excessive and frequent menstruation with regular cycle; N83.202 Unspecified ovarian cyst, left side; N80.3 Endometriosis of pelvic peritoneum; K59.00 Constipation, unspecified; G89.29 Other chronic pain; M54.5 Low back pain; M79.7 Fibromyalgia; F17.200 Nicotine dependence, unspecified, uncomplicated; Z53.31 Laparoscopic surgical procedure converted to open procedure; Z88.2 Allergy status to sulfonamides; Z88.5 Allergy status to narcotic agent; Z88.6 Allergy status to analgesic agent
CPT/HCPCS: 82565; 85025; 86850; 86900; 86901; 88307; 94150; J0131; J0690; J1100; J1170; J1885; J2175; J2250; J2405; J2710; J3010; J7120